=== PATIENT | female | born 1955 | race Caucasian/White ===

== ENCOUNTER → 2017-06-01 | Outpatient (CLI) | payer MEDICARE, OTHER ==
[2017-06-01] MEDS: OPHTHALMIC IRRIG SOLUTION 120 ML (10:31)
[2017-06-01] MEDS: APRACLONIDINE 1% 0.1 ML OPH (10:31)
[2017-06-01] MEDS: PROPARACAINE 0.5% 15 ML OPH (10:31)
[2017-06-01] MEDS: PILOCARPINE 2% 15ML OPH (10:32)
== END | disposition home or self-care (01) ==
LOC: RAD 09:54
DX: H40.20X0 Unspecified primary angle-closure glaucoma, stage unspecified (principal)
CPT/HCPCS: 66761

== ENCOUNTER → 2017-06-09 | Outpatient (CLI) | payer MEDICARE, OTHER ==
[2017-06-09] MEDS: PROPARACAINE 0.5% 15 ML OPH (11:10)
[2017-06-09] MEDS: APRACLONIDINE 1% 0.1 ML OPH (11:10)
[2017-06-09] MEDS: PILOCARPINE 2% 15ML OPH (11:10)
== END | disposition home or self-care (01) ==
LOC: RAD 10:24
DX: H40.20X0 Unspecified primary angle-closure glaucoma, stage unspecified (principal)
CPT/HCPCS: 66761